=== PATIENT | female | born 1970 | race Two or more races ===

== ENCOUNTER 2025-01-30 14:38 | Outpatient (CLI) | payer OTHER | END 2025-01-30 14:42 | disposition home or self-care (01) | LOC: NUCLEAR 14:38 | PROVIDERS: ATTEND Physical Medicine & Rehabilitation | DX: I82.402 Acute embolism and thrombosis of unspecified deep veins of left lower extremity (principal) ==

== ENCOUNTER 2025-01-31 09:43 | Outpatient (CLI) | payer OTHER | END 2025-01-31 12:43 | disposition home or self-care (01) | LOC: SONOGRAMA 09:43 | PROVIDERS: ATTEND Physical Medicine & Rehabilitation | DX: M54.2 Cervicalgia (principal); M54.6 Pain in thoracic spine; M76.812 Anterior tibial syndrome, left leg ==

== ENCOUNTER 2025-02-06 09:54 | Outpatient (CLI) | payer OTHER | END 2025-02-06 09:57 | disposition home or self-care (01) | LOC: MAMO-SONO 09:54 | PROVIDERS: ATTEND Obstetrics & Gynecology | DX: N60.11 Diffuse cystic mastopathy of right breast (principal); N60.12 Diffuse cystic mastopathy of left breast; Z12.31 Encounter for screening mammogram for malignant neoplasm of breast; M54.2 Cervicalgia; M54.12 Radiculopathy, cervical region | CPT/HCPCS: 72141 ==